=== PATIENT | male | born 1960 | race American Indian/Alaskan Native ===

== ENCOUNTER → 2020-02-08 | Outpatient (CLI) | payer OTHER ==
[~2020-02-08] MED LIST: ASPIR 8181 MG PO; BYSTOLIC10 MG PO; COUMADIN 5 MG TA5 M1 PO; COZAAR 25 MG TA25 M2 PO; COZAAR100 MG PO; CRESTOR10 MG PO; EFFIENT10 MG PO
== END ==
LOC: EDBD → SJCVCIMAG 10:25
PROVIDERS: ATTEND Internal Medicine Cardiovascular Disease
DX: I65.23 Occlusion and stenosis of bilateral carotid arteries (principal); I08.2 Rheumatic disorders of both aortic and tricuspid valves; I77.810 Thoracic aortic ectasia; I42.9 Cardiomyopathy, unspecified

== ENCOUNTER 2020-02-09 10:16 | Observation (INO) | payer OTHER ==
[~2020-02-09] VITALS: Ht 182.9 cm; Wt 92.1 kg
[2020-02-09] MEDS ORDERED: CRESTOR10 MG PO (10:29)
[2020-02-09] MEDS ORDERED: COZAAR 25 MG TA25 M2 PO (10:29)
[2020-02-09] MEDS ORDERED: BYSTOLIC10 MG PO (10:29)
[2020-02-09 10:56] VITALS: BP 121/78
[2020-02-09] MEDS ORDERED: COZAAR100 MG PO (11:02)
[2020-02-09 11:04] LABS: HEMATOCRIT 51.3 % (42.0-52.0); HEMOGLOBIN 17.5 gm/dL (14.0-18.0); MCH 30.9 pg (26.0-34.0); MCHC 34.1 g/dL (28.0-37.0); MCV 90.6 fL (80.0-100.0); RBC 5.67 mil/uL (4.50-6.00); RDW 13.7 % (10.5-14.5); WBC 6.2 thou/uL (4.0-11.0)
[2020-02-09 11:06] LABS: CALCIUM 9.2 mg/dL (8.5-10.1); CREATININE 1.9 mg/dL (0.7-1.3); POTASSIUM 4.4 mmol/L (3.5-5.1)
[2020-02-09 14:45] VITALS: BP 116/80
[2020-02-09 15:02] VITALS: BP 116/80
--- NOTE | 2020-02-09 15:21 | NUR ---
PT ARRIVED TO UNIT FROM STAFF AIR TACTICAL OFFICER BY STAFF AIR TACTICAL OFFICER STAFF. PT ALERT AND ORIENTED. VSS. DENIES PAIN. DENIES CP/SOB. RT GROIN SITE CDI, NO HEMATOMA. BEDREST INITIATED. ADMISSION COMPLETE. TELE STRIP PRINTED AND DOCUMENTED. PT CURRENTLY RESTING IN BED COMFORTABLY. RN CALLED CARDIOLOGY IN ATTEMPT TO GET ORDERS FOR PT. WILL CONTINUE TO MONITOR. ASSESSING GROIN SITE FREQUENTLY.
--- NOTE | 2020-02-09 17:04 | EKG ---
[facility] [place] [address] ELECTROCARDIOGRAM REPORT Name: MITUL CHAUDHARY Room #: 208-P ADM IN M.R.#: [id number] Admission: 02/09/20 Attend Phys: Mac Guajardo MD, Discharge: Date of : 60 Report #: [id number] THIS REPORT FOR: cc: Jose De Jesus Herrera Gregg R. DO Lundgren, Craig H. 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: ABI : 1960 Requested By: Mac Guajardo Order Number: [id number] MD: Chucky Shaw Measurements Intervals [place] Rate: 71 P: 53 MS: 170 QRS: 24 QRSD: 105 T: 35 QT: 422 QTc: 459 Interpretive Statements Sinus rhythm Left atrial enlargement Anterolateral infarct, age indeterminate Abnormal T, probable ischemia, lateral leads No previous ECG available for comparison Electronically Signed On 02-09-2020 17:03:41 CDT by Chucky Shaw [email or web address] <ELECTRONICALLY SIGNED> By: Chucky Shaw MD, [facility] 02/09/20 1703 105 105 Chucky Shaw MD, [facility] /EPI
--- NOTE | 2020-02-09 18:37 | CATHLAB ---
[facility] [place] [address] INVASIVE PROCEDURE REPORT Name: MITUL CHAUDHARY Room #: 208-P ADM IN M.R.#: [id number] Admission: 02/09/20 Attend Phys: Mac Guajardo MD, Discharge: Date of : 60 Report #: [id number] THIS REPORT FOR: cc: Jose De Jesus Herrera Gregg R. DO Mancuso, Gerald M. MD [facility] ~ APPROVED REPORT Study performed: 02/09/2020 11:32:57 Patient Details Patient Status: Out-Patient Room #: The patient is a 59 year-old male Event Personnel Mac Guajardo It Operations Manager, Jayro Angela RTR Scrub, Audra Newman RTR Monitor, Taiwo Post RN RN, Marcela De Luna RTR Monitor Procedures Performed Art Access - R femoral artery* Coronary Angiography Only 8388466 CORANG ESTELA Place w/wo Plasty Single LAD 674498 Hemostasis w/ Mynx 07735 Initial Mod Sed Same Phys/QHP Gr5y 179310 61433 Mod Sed Same Phys/QHP Ea 415183 Indication Chest pain Procedure Narrative The Right Groin^ was infiltrated with 1% Lidocaine subcutaneous anesthesia. A PINNACLE 6FR Sheath #[id number] sheath was inserted into the RFA^. Coronary angiography was performed using coronary diagnostic catheters. The right coronary system was accessed and visualized with a JR4 catheter. The left coronary system was accessed and visualized with a JL4 catheter. Closure device was deployed with a 6FR Fr MINX WARD SUPERVISOR. The patient tolerated the procedure well and there were no complications associated with the procedure. There was no hematoma. Intraoperative Conscious Sedation Fentanyl 250.0 mcg Versed 4.0 mg Fluoro Time: 10.20 minutes Dose: DAP 7868.71 cGycm2 [address] [address] INVASIVE PROCEDURE REPORT Name: JETMITUL DOLPH Room #: 208-P [facility] IN M.R.#: [id number] Admission: 02/09/20 Attend Phys: Mac Guajardo, Discharge: Date of : 60 Report #: [id number] Contrast Type and Amount: Visipaque 100 ml Hemodynamics The aortic pressure is 125/72 mmHg with a mean of 95 mmHg. PCI Technique Lesion Percutaneous coronary intervention was performed on the mid left anterior descending artery segment. A LAUNCHER 6FR EBU 4 #[id number] Guide Catheter was used to engage the ostium. A Luge Wire .014 x 182CM #[id number] Interventional Guidewire was used to cross the lesion. BALLOON DILATION A Balloon catheter Sprinter OTW 2.5 x 12 #[id number] was inserted and inflated up to 4.00atm for 20seconds. Additional Inflation: 8.00atm for 18seconds. Additional Inflation: 6.00atm for 14seconds. Additional Inflation: 8 robb for 17 seconds. Additional Inflation: 10 robb for 21 seconds. STENT DEPLOYMENT A stent RESOLUTE SANTIAGO OTW 2.5 X 18 #[id number] was inserted and inflated up to 12.00atm for 31seconds. Additional Inflation: 14.00atm for 26seconds. Conclusion 1. Successful PTCA stent of a totally occluded mid LAD lesion. Placement of a 2.5 x 18 resolute drug-eluting stent postdilated 2.7 mm ALLYSON grade III flow on this LAD extends around the apex mildly diseased #2 left main with mild ostial narrowing of 30% giving rise to LAD and circumflex #3 dominant right coronary artery with mild irregularities no occlusive disease anatomically dominant providing no significant collateral flow to LAD. #4 circumflex OM nondominant a small ramus branch first OM mildly diseased. A second OM has a high-grade lesion is relatively small caliber vessel approximately 2 oh to 2.25 we will treat this medically for now. May consider PTCA stent at a later date. Recommendations and plan: Patient is stable upon transfer to CCU to follow post stent protocol. Dual antiplatelet therapy has been initiated. LV gram was not performed due to a small to moderate size apical thrombus noted on echo yesterday. This infarct vessel appears to have occurred around November 10 of this year proximally 3 months ago. Patient did not seek attention at that time due to the COVID and not [address] [address] INVASIVE PROCEDURE REPORT Name: MITUL CHAUDHARY Room #: 208-P [facility] IN M.R.#: [id number] Admission: 02/09/20 Attend Phys: Mac Guajardo, Discharge: Date of : 60 Report #: [id number] wanting to go to the hospital. The ejection fraction appears to be in the 45% range hoping for some improvement. There was some collateral filling of the distal half of this LAD from the left system left to left. Will initiate anticoagulation with warfarin. Patient transferred to CCU to follow post stent protocol hemodynamically stable. <ELECTRONICALLY SIGNED> By: Mac Guajardo MD, [facility] 02/09/201835 35 35 Mac Guajardo MD, FACC /INF
[2020-02-09 20:00] VITALS: BP 125/76
[2020-02-09 20:07] VITALS: BP 125/76
[2020-02-10 00:01] VITALS: BP 116/75
[2020-02-10 00:21] VITALS: BP 116/75
[2020-02-10 04:35] VITALS: BP 114/76
[2020-02-10 05:59] LABS: HEMOGLOBIN 17.8 gm/dL (14.0-18.0); MCH 30.8 pg (26.0-34.0); MCHC 33.5 g/dL (28.0-37.0); MCV 91.8 fL (80.0-100.0); RBC 5.77 mil/uL (4.50-6.00); RDW 13.6 % (10.5-14.5); WBC 6.2 thou/uL (4.0-11.0)
[2020-02-10 06:03] VITALS: BP 114/76
--- NOTE | 2020-02-10 06:11 | NUR ---
SLEPT MOST OF SHIFT. UP AD DANIELE IN ROOM WITH STEADY GAIT. RIGHT GROIN DRESSING REMAINS DRY AND INTACT, NO HEMOTOMA OR BLEEDING. WORKING ON GOALS AND PLAN OF CARE FOR NOC. PROGRESSING TOWARDS DISCHARGE GOALS. CONTINUE TO ASSES.
[2020-02-10 06:14] LABS: INR 1.1; PROTIME 10.8 Seconds (9.3-11.4)
[2020-02-10 06:41] LABS: ALBUMIN 3.7 g/dL (3.4-5.0); ANION GAP 10 mmol/L (7-16); BUN 15 mg/dL (7-18); CALCIUM 8.8 mg/dL (8.5-10.1); CHLORIDE 103 mmol/L (98-107); CO2 26 mmol/L (21-32); CREATININE 1.6 mg/dL (0.7-1.3); GLUCOSE 97 mg/dL (74-106); POTASSIUM 4.3 mmol/L (3.5-5.1); SGOT 26 U/L (15-37); SGPT 23 U/L (30-65); SODIUM 139 mmol/L (136-145); TOTAL BILIRUBIN 1.3 mg/dL (0.2-1.0); TOTAL PROTEIN 7.6 g/dL (6.4-8.2); TROPONIN-I <0.06 ng/mL (<0.06)
[2020-02-10] MEDS ORDERED: ASPIR 8181 MG PO (07:20)
[2020-02-10] MEDS ORDERED: EFFIENT10 MG PO (07:20)
[2020-02-10] MEDS ORDERED: COUMADIN 5 MG TA5 M1 PO (07:20)
[2020-02-10 08:06] VITALS: BP 132/75
--- NOTE | 2020-02-10 08:19 | EKG ---
[facility] [place] [address] ELECTROCARDIOGRAM REPORT Name: MITUL CHAUDHARY Room #: 208-P ADM [facility] M.R.#: [id number] Admission: 02/09/20 Attend Phys: Mac Guajardo MD, Discharge: Date of : 60 Report #: [id number] THIS REPORT FOR: cc: Jose De Jesus Herrera Gregg R. DO Lundgren, Craig H. 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 Contact Lens: Mariano GUNN : 1960 Requested By: Mac Guajardo Order Number: [id number] MD: Chucky Shaw Measurements Intervals [place] Rate: 66 P: 63 VT: 170 QRS: 61 QRSD: 104 T: 15 QT: 440 QTc: 461 Interpretive Statements Sinus rhythm Probable anterior infarct, recent Compared to ECG 02/09/2020 10:51:06 No significant change was found Electronically Signed On 02-10-2020 8:19:14 CDT by Chucky Shaw [email or web address] <ELECTRONICALLY SIGNED> By: Chucky Shaw MD, [facility] 02/10/20818 6 6 Chucky Shaw MD, [facility] /EPI
[2020-02-10 09:11] VITALS: BP 132/75
== END 2020-02-10 11:30 | disposition home or self-care (01) ==
LOC: CATH 10:16 → 2N 15:15
PROVIDERS: Nurse Practitioner Adult Health; ADMIT Internal Medicine Cardiovascular Disease; ATTEND Internal Medicine Cardiovascular Disease
DX: I25.10 Atherosclerotic heart disease of native coronary artery without angina pectoris (principal); I10 Essential (primary) hypertension; E78.5 Hyperlipidemia, unspecified

== ENCOUNTER → 2020-02-15 | Outpatient (CLI) | payer OTHER | LOC: SJCVC 14:08 | PROVIDERS: ATTEND Internal Medicine Cardiovascular Disease | DX: Z51.81 Encounter for therapeutic drug level monitoring (principal); E78.5 Hyperlipidemia, unspecified; I10 Essential (primary) hypertension; Z79.01 Long term (current) use of anticoagulants; Z79.899 Other long term (current) drug therapy ==

== ENCOUNTER → 2020-03-18 | Outpatient (CLI) | payer OTHER | LOC: SJCVCIMAG 08:01 | PROVIDERS: ATTEND Internal Medicine Cardiovascular Disease | DX: I25.5 Ischemic cardiomyopathy (principal); I25.10 Atherosclerotic heart disease of native coronary artery without angina pectoris ==

== ENCOUNTER → 2020-06-17 | Outpatient (CLI) | payer OTHER | LOC: SJCVC 08:00 | PROVIDERS: ATTEND Internal Medicine Cardiovascular Disease | DX: Z51.81 Encounter for therapeutic drug level monitoring (principal); Z79.01 Long term (current) use of anticoagulants ==

== ENCOUNTER → 2020-08-01 | Outpatient (CLI) | payer OTHER | LOC: SJCVCIMAG 08:38 | PROVIDERS: ATTEND Internal Medicine Cardiovascular Disease | DX: I08.8 Other rheumatic multiple valve diseases (principal); I25.10 Atherosclerotic heart disease of native coronary artery without angina pectoris; I25.5 Ischemic cardiomyopathy ==

== ENCOUNTER → 2020-12-09 | Outpatient (CLI) | payer OTHER | LOC: SJCVCIMAG 09:25 | PROVIDERS: ATTEND Internal Medicine Cardiovascular Disease | DX: I25.2 Old myocardial infarction (principal); R06.00 Dyspnea, unspecified; R53.83 Other fatigue; I10 Essential (primary) hypertension; I25.10 Atherosclerotic heart disease of native coronary artery without angina pectoris; Z95.5 Presence of coronary angioplasty implant and graft ==